=== PATIENT | male | born 1990 | race Caucasian/White ===

== ENCOUNTER → 2019-12-19 12:06 | Outpatient (BNVA) | payer SELFPAY | PROVIDERS: Visit Provider Family Medicine | DX: I10 Essential (primary) hypertension (principal); S83.206A Unspecified tear of unspecified meniscus, current injury, right knee, initial encounter; G43.109 Migraine with aura, not intractable, without status migrainosus; Z00.00 Encounter for general adult medical examination without abnormal findings; M79.89 Other specified soft tissue disorders; R00.0 Tachycardia, unspecified; E66.01 Morbid (severe) obesity due to excess calories | CPT/HCPCS: 80053; 83036; 83880; 85025 ==